=== PATIENT | male | born 1950 | race Caucasian/White ===

== ENCOUNTER → 2016-07-03 | Outpatient (CLI) | payer MEDICARE ==
[~2016-07-03] MED LIST: AMLO5TAB2 PO; CEFAZOLIN 1 GRAM INJECTION IV ONE; FENTANYL 100mcg/2ml INJECTION IV PRN; LIDOCAINE 1% (10mg/ml) 2ml SDV INJ ONE; LR 1,000 ML IV SCH; MIDAZOLAM 5mg/5ml INJECTION IV PRN
== END ==
LOC: SCU 08:00 → EDSTATUS 12:15
PROVIDERS: ATTEND Surgery Plastic and Reconstructive Surgery
DX: Z53.9 Procedure and treatment not carried out, unspecified reason (principal)